=== PATIENT | female | born 1980 | race African-American/Black ===

== ENCOUNTER 2023-11-06 22:28 | Outpatient (REF) | payer OTHER, SELFPAY ==
[2023-11-06 23:07] LABS: Basophils Absolute Auto 0.04 K/uL (0.00-0.30); Basophils Percent Auto 0.4 % (0.0-3.0); Eosinophils Absolute Auto 0.07 K/uL (0.00-0.50); Eosinophils Percent Auto 0.7 % (0.0-7.0); Hematocrit 25.7 % (33.0-51.0); Immature Granulocytes Abs Auto 0.09 K/uL (0.00-0.30); Immature Granulocytes Pct Auto 0.9 %; Lymphocytes Absolute Auto 2.26 K/uL (0.90-2.90); Lymphocytes Percent Auto 21.6 % (20-44); Mean Corpuscular HGB Conc 28 gm/dL (32-36); Mean Corpuscular Hemoglobin 20 pg (26-34); Mean Corpuscular Volume 71 fL (80-100); Monocytes Percent Auto 8.4 % (0.0-11.0); Neutrophils Absolute Auto 7.11 K/uL (1.7-7.0); Platelet Count* 632 K/uL (140-440); RDW Coefficient of Variation % 20.5 % (11.5-15.5); Red Blood Count 3.62 m/uL (4.00-5.20); White Blood Count* 10.45 K/uL (4.50-11.00)
[2023-11-06 23:13] LABS: Hemoglobin* 7.2 gm/dL (12.0-16.0); Slide Review Reflex No
== END 2023-11-06 22:29 | disposition home or self-care (01) ==
LOC: LAB 22:28
PROVIDERS: Visit Provider Nurse Practitioner Family
DX: D64.9 Anemia, unspecified (principal)
CPT/HCPCS: 36415; 85025